=== PATIENT | female | born 1985 | race Two or more races ===

== ENCOUNTER 2021-09-16 05:51 | Outpatient (CLI) | payer BC | END 2021-09-16 23:59 | disposition home or self-care (01) | LOC: LAB 05:51 | PROVIDERS: ATTEND Surgery | DX: Z01.812 Encounter for preprocedural laboratory examination (principal); Z20.822 Contact with and (suspected) exposure to COVID-19 | CPT/HCPCS: C9803; U0003 ==

== ENCOUNTER 2021-09-19 05:56 | Inpatient (IN) | payer BC ==
[~2021-09-19] VITALS: Ht 165.1 cm; Wt 150.6 kg
[~2021-09-19 05:56] MED LIST: ANESTHESIA TRAY IN PYXIS 1 EA TRAY MC ONE
[2021-09-19] MEDS ORDERED: ATOR20TA PO (06:46)
[2021-09-19] MEDS ORDERED: OMEP20CA15 PO (06:46)
[2021-09-19 07:04] VITALS: BP 114/80
[2021-09-19] MEDS ORDERED: FENTANYL PF 100MCG/2ML AMPUL ONE ×2 (07:06→12:09)
[2021-09-19] MEDS ORDERED: HYDROMORPHONE INJ 2 MG/ML DISP.SYRIN ONE (07:06)
[2021-09-19] MEDS ORDERED: ROCURONIUM BROMIDE 50 MG/5 ML ONE ×2 (07:07→08:56)
[2021-09-19] MEDS ORDERED: MIDAZOLAM HCL 2 MG/2ML VIAL ONE (07:07)
--- NOTE | 2021-09-19 07:09 | NUR ---
MS AUTOMOTIVE METALSMITH FOR DAY SURGERY: PATIENT ARRIVED TO UNIT, AMBULATORY, STEADY GAIT, COMMUNICATIVE, ALERT AND ORIENTED X4. NAD AND STABLE. MRSA SWAB OBTAINED, PHONED LAB FOR HEARING AID FITTER. URINE SAMPLE OBTAINED PHONED LAB FOR HEARING AID FITTER. IV ACCESS TO L AC #20 GAUGE, FLUSHED, PATENT, DENIES PAIN, NO INFILTRATION. LUNG SOUNDS CTA. HEART SOUNDS REGULAR AND EASILY AUDIBLE TO AUSCULTATION. NO PERIPHERAL EDEMA OBSERVED. PMH OF HIGH CHOLESTEROL, ACID REFLUX, R SHOULDER ARTHRITIS, GALLSTONES PER PATIENT REPORT. PATIENT STATES SHE HAS A FAMILIAL HX OF MANY DIFFERENT TYPES OF CANCERS ON BOTH MOM AND DAD'S SIDE OF FAMILY. PATIENT'S MOM AND DAD BOTH HAVE DX OF HIGH CHOLESTEROL PER PATIENT REPORT. PATIENT STATES SHE'S BEEN NPO SINCE 1800 07/18/22. DISCUSSED SURGERY PLAN PER MD. PATIENT VERBALIZES UNDERSTANDING AND RISKS. CONSENTS FOR SURGERY, ANESTHESIA AND BLOOD TRANSFUSION SIGNED. PATIENT DENIES FURTHER QUESTION. BED IN LOW, LOCKED POSITION. SIDE RAILS UP X2. HOB ELEVATED TO SEMI-BURNETTE'S POSITION. PATIENT ORIENTED TO ROOM. PATIENT DEMONSTRATES ABILITY TO USE CALL LIGHT AND VERBALIZE NEEDS EFFECTIVELY. CALL LIGHT WITHIN REACH.
--- NOTE | 2021-09-19 07:30 | NUR ---
MS RN NOTES PATIENT IN THE OR FOR LAPAROSCOPY VS OVEN SLEEVE GASTRECTOMY, HIATAL HERNIA REPAIR AND LIVER BIOPSY ENDORSED BY TREVOR CHAIDEZ.
[2021-09-19] MEDS ORDERED: BUPIVACAINE MPF W/EPI 0.25% 30 ML VIAL ONE ×2 (08:07→08:13)
[2021-09-19] MEDS ORDERED: LIDOCAINE 1% INJ 50 ML MDV IJ ONE (08:07)
[2021-09-19] MEDS ORDERED: SEVOFLURANE 250 ML BOTTLE IH ONE (08:08)
[2021-09-19] MEDS ORDERED: HEPARIN SODIUM, PORCINE 5000 UNITS/1 ML VIAL ONE (09:03)
[2021-09-19] MEDS ORDERED: HEMOSTATIC MATRIX 8 ML 1 EACH PAD MC ONE (10:56)
[2021-09-19] MEDS ORDERED: ACETAMINOPHEN ES 500 MG TABLET PO PRN (13:30)
[2021-09-19 13:40] VITALS: BP 121/78
--- NOTE | 2021-09-19 13:40 | NUR ---
RN NOTES RECEIVED PATIENT VIA STRETCHER FROM ER ENDORSED BY OR NURSE BAUMAN. PATIENT IS AWAKE AND A/O X4. ON O2 AT 2LPM VIA NASAL CANNULA SATURATING AT 96%. NO SOB NOTED. NOT IN DISTRESS. WITH NO COMPLAINTS OF PAIN OR DISCOMFORT AT THIS TIME. WITH IV ACCESS AT LEFT AC G20 WITH LR AT 75ML/HR INFUSING WELL. SAFETY MEASURES IN PLACED. CALL LIGHT WITHIN REACH. BED ON LOWEST LOCKED POSITION, SIDE RAILS UP X2. WILL CONTINUE TO MONITOR.
[2021-09-19 13:55] VITALS: BP 123/78
[2021-09-19 14:30] VITALS: BP 122/71
[2021-09-19] MEDS ORDERED: ONDANSETRON HCL/PF 4 MG/2 ML VIAL IV PRN (15:30)
[2021-09-19] MEDS: HYDROCODONE/APAP 5/325MG TABLET PO PRN ×2 (15:35→21:53)
[2021-09-19 16:36] VITALS: BP 119/69
[2021-09-19] MEDS ORDERED: MORPHINE SULFATE INJ 2 MG/ML DISP.SYRIN IM PRN (18:00)
[2021-09-19] MEDS ORDERED: IV NS 0.9% 1,000 ML IV PRN (18:00)
--- NOTE | 2021-09-19 18:25 | NUR ---
MS RN CLOSING NOTES PATIENT IS AWAKE AND A/O X4. ON O2 AT 2LPM VIA NASAL CANNULA SATURATING AT 97%. NO SOB NOTED. NOT IN DISTRESS. WITH NO COMPLAINTS OF PAIN OR DISCOMFORT AT THIS TIME. WITH IV ACCESS AT LEFT AC G20 WITH NS AT 100ML/HR INFUSING WELL. SAFETY MEASURES IN PLACED. CALL LIGHT WITHIN REACH. BED ON LOWEST LOCKED POSITION, SIDE RAILS UP X2. WILL ENDORSE TO NEXT SHIFT FOR BIANKA.
--- NOTE | 2021-09-19 18:45 | NUR ---
RN NOTES PATIENT WAS ABLE TO AMBULATE STEADILY INSIDE THE ROOM.
[2021-09-19] MEDS: METOCLOPRAMIDE HCL 10 MG/2 ML VIAL IV SCH (19:22)
--- NOTE | 2021-09-19 19:50 | NUR ---
MS RN OPENING NOTES RECEIVED PATIENT IN BED WITH HOB ELEVATED, SOMNOLENT. NO S/S OF APPARENT DISTRESS. PAIN TOLERABLE AT THIS TIME PER PATIENT. L. AC #20g RUNNING NS @100ML/HR. SAFETY IN PLACE. WILL CONTINUE WITH PATIENT CARE PLAN.
[2021-09-19 21:16] VITALS: BP 118/68
[2021-09-19] MEDS: HEPARIN SODIUM, PORCINE 5000 UNITS/1 ML VIAL SQ SCH (21:47)
[2021-09-20] MEDS: METOCLOPRAMIDE HCL 10 MG/2 ML VIAL IV SCH ×4 (00:35→17:57)
[2021-09-20] MEDS: HEPARIN SODIUM, PORCINE 5000 UNITS/1 ML VIAL SQ SCH ×2 (05:25→13:44)
--- NOTE | 2021-09-20 07:21 | NUR ---
MS RN CLOSING PATIENT IN BED. A/OX4. HOB ELEVATED. NO S/S OF APPARENT DISTRESS ON ROOM AIR. PAIN MANAGED WITH MEDICATIONS. TERESITA DRAIN DRAINING SEROSANGUINEOUS WITH OUTPUT OF 60 ML. DISCONNECTED ON FLUIDS RIGHT NOW PER PATIENT REQUEST. SAFETY IN PLACE. ALL NEEDS ATTENDED. ALL SCHEDULED MEDICATIONS ADMINISTERED. REPORT GIVEN TO NOEL FOR CONTINUITY OF CARE.
--- NOTE | 2021-09-20 07:30 | NUR ---
MS RN OPENING NOTES RECEIVED PATIENT ON BED AWAKE AND A/O X4. ON ROOM AIR TOLERATING WELL. NO SOB NOTED. NOT IN DISTRESS. WITH NO COMPLAINTS OF PAIN OR DISCOMFORT AT THIS TIME. WITH IV ACCESS AT LEFT AC G20 WITH NS AT 100ML/HR INFUSING WELL. SAFETY MEASURES IN PLACED. CALL LIGHT WITHIN REACH. BED ON LOWEST LOCKED POSITION, SIDE RAILS UP X2. WILL CONTINUE TO MONITOR.
[2021-09-20 08:27] VITALS: BP 120/76
[2021-09-20] MEDS ORDERED: MORPHINE SULFATE INJ 2 MG/ML DISP.SYRIN IV PRN (08:30)
[2021-09-20] MEDS: HYDROCODONE/APAP 5/325MG TABLET PO PRN ×3 (08:32→18:51)
[2021-09-20] MEDS ORDERED: PANTOPRAZOLE 40 MG/PACK PACK PO SCH (09:00)
--- NOTE | 2021-09-20 10:30 | NUR ---
RN NOTE CALLED RADIOLOGY DEPARTMENT TO FOLLOW-UP ON THE XR UPPER GI WITH GASTROGRAFFIN PROCEDURE AND TOLD ME THAT THEY WILL CALL TO LET ME KNOW WHAT TIME WILL THE PROCEDURE BE DONE.
--- NOTE | 2021-09-20 11:00 | NUR ---
RN NOTE CALLED RADIOLOGY AND THEY SAID THEY WILL FOLLOW UP WITH THE RADIOLOGY DOCTOR TO DO THE PROCEDURE.
[2021-09-20] MEDS ORDERED: MORPHINE SULFATE INJ 4 MG/ML DISP.SYRIN IV PRN (12:00)
--- NOTE | 2021-09-20 14:00 | NUR ---
RN NOTES RADIOLOGY CALLED AND SAID THE DOCTOR WONT BE ABLE TO DO THE PROCEDURE TODAY.
[2021-09-20 16:14] VITALS: BP 109/55
--- NOTE | 2021-09-20 19:30 | NUR ---
MS RN CLOSING NOTES PATIENT ON BED AWAKE AND A/O X4. ON ROOM AIR TOLERATING WELL. NO SOB NOTED. NOT IN DISTRESS. WITH NO COMPLAINTS OF PAIN OR DISCOMFORT AT THIS TIME. WITH IV ACCESS AT LEFT AC G20 WITH NS AT 100ML/HR INFUSING WELL. SAFETY MEASURES IN PLACED. CALL LIGHT WITHIN REACH. BED ON LOWEST LOCKED POSITION, SIDE RAILS UP X2. PATIENT IS FOR DISCHARGE TO HOME PER DOCTOR HAILE GABRIEL. WILL ENDORSE TO NEXT SHIFT FOR BIANKA.
--- NOTE | 2021-09-20 20:00 | NUR ---
MS/GIFT SHOP CLERK NOTE RECEIVED PATIENT SITTING AT SIDE OF BED. ALERT AND ORIENTED X 4. FAMILY AT BEDSIDE. CONTINUES ON ROOM AIR WITH NO S/SX OF RESPIRATORY DISTRESS NOTED. PATIENT IS DISCHARGING TO HOME PER DR. GABRIEL. ALL DISCHARGE PAPERWORK REVIEWED WITH PATIENT. ALL BELONGINGS ACCOUNTED FOR. PATIENT SIGNED BELONGINGS LIST AND DISCHARGE SUMMARY. IV DISCONTINUED TO LEFT AC #20G. TIP INTACT WITH MINIMAL DRAINAGE NOTED. PRESSURE DRESSING APPLIED. PATIENT TOLERATED WELL. ID BAND REMOVED. SKIN CHECK PERFORMED WITH NO SKIN ISSUES NOTED - TERESITA DRAIN TO RIGHT SIDE NOTED WITH SURGICAL INCISION DRESSINGS C/D/I. PATIENT EDUCATED ON CARE OF TERESITA DRAIN. DRAIN EMPTIED PRIOR TO DISCHARGE WITH 10CC SEROSANGUINEOUS DRAINAGE NOTED. PATIENT DISCHARGED AND ESCORTED TO [facility] VIA WHEELCHAIR AND STAFF MEMBER @ APPROX. 20:00. Addendum: 09/20/21 at 2030 by CARLOS ORTIZ RN VS AT DISCHARGE: BP 120/52 HR 80 RR 18 T 97.8 O2 SAT 100% ON ROOM AIR.
== END 2021-09-20 20:05 | disposition home or self-care (01) | DRG 621 ==
LOC: DS 05:56 → MED 06:01
PROVIDERS: ADMIT Internal Medicine; ATTEND Internal Medicine
PROC: 0DB60Z3 Excision of Stomach, Open Approach, Vertical (ICD-10-PCS; principal; 2021-09-19)
PROC: 0BQT4ZZ Repair Diaphragm, Percutaneous Endoscopic Approach (ICD-10-PCS; 2021-09-19)
PROC: 0FB04ZX Excision of Liver, Percutaneous Endoscopic Approach, Diagnostic (ICD-10-PCS; 2021-09-19)
DX: E66.01 Morbid (severe) obesity due to excess calories (principal); Z20.822 Contact with and (suspected) exposure to COVID-19; I10 Essential (primary) hypertension; E78.5 Hyperlipidemia, unspecified; K44.9 Diaphragmatic hernia without obstruction or gangrene; K76.0 Fatty (change of) liver, not elsewhere classified
CPT/HCPCS: 84703-TC; 87081-TC; 88305-TC; 88307-TC; 88313-TC; C1763; G0378; J0330; J0690; J1100; J1170; J1644; J1885; J2250; J2270; J2405; J2704; J2765; J3010; J3490; J7030